=== PATIENT | female | born 1950 | race Caucasian/White ===

== ENCOUNTER 2017-02-04 12:50 | Emergency (ER) | payer MEDICARE, OTHER ==
[~2017-02-04] VITALS: Ht 154.9 cm; Wt 68.0 kg
[~2017-02-04 12:50] MED LIST: DIT5 PO; IBUP-974 PO; LOVA20TA2 PO; PARO-42 PO; TRAM50TA3 PO; TRAZ-289 PO
--- NOTE | 2017-02-04 12:50 | NUR ---
Patient was BIBA at this time.
[2017-02-04 13:00] VITALS: BP 120/78
--- NOTE | 2017-02-04 13:06 | NUR ---
PT TRAIGED WAITING FOR ER BED. EMS WITH PATIENT AT THIS TIME.
--- NOTE | 2017-02-04 13:27 | NUR ---
Patient taken to bed 01 via gurney per EMS.
--- NOTE | 2017-02-04 13:42 | NUR ---
Dr. Olivera evaluating patient at bedside.
[2017-02-04 14:23] LABS: BASOPHILS # (AUTO) 0.1 K/uL (0.00-0.22); BASOPHILS % (AUTO) 1.4 % (0.0-2.0); EOSINOPHILS # (AUTO) 0.1 K/uL (0-0.4); EOSINOPHILS % (AUTO) 0.7 % (0.0-4.0); HEMATOCRIT 37.7 % (36-48); HEMOGLOBIN 12.5 g/dL (12.0-16.0); LYMPHOCYTES # (AUTO) 1.7 K/uL (2.5-16.5); LYMPHOCYTES % (AUTO) 22.8 % (20.5-51.1); MEAN CORPUSCULAR HEMOGLOBIN 27 pg (27-31); MEAN CORPUSCULAR HGB CONC 33 g/dL (33-37); MEAN CORPUSCULAR VOLUME 81 fL (80-94); MONOCYTES # (AUTO) 0.4 K/uL (0.8-1.0); MONOCYTES % (AUTO) 4.8 % (1.7-9.3); NEUTROPHILS # (AUTO) 5.2 K/uL (1.8-7.7); NEUTROPHILS % (AUTO) 70.3 % (42.2-75.2); PLATELET COUNT (AUTO) 204 K/uL (140-450); RED BLOOD CELL COUNT(AUTO) 4.63 MIL/uL (4.20-5.40); RED CELL DISTRIBUTION WIDTH 14.9 % (11.6-13.7); WHITE BLOOD COUNT (AUTO) 7.5 K/uL (4.8-10.8)
[2017-02-04 14:25] LABS: APPEARANCE,URINE CLEAR (CLEAR); BILIRUBIN,URINE NEGATIVE (NEGATIVE); BLOOD, URINE NEGATIVE (NEGATIVE); COLOR,URINE YELLOW (YELLOW); LEUKOCYTE ESTERASE ,URINE NEGATIVE (NEGATIVE); NITRITE, URINE NEGATIVE (NEGATIVE); UGLUCOSE NEGATIVE (NEGATIVE)
[2017-02-04 14:44] LABS: ANION GAP 13.9 (8-16); CREATININE 0.9 mg/dL (0.6-1.3); POTASSIUM 3.9 mmol/L (3.5-5.1)
[2017-02-04 14:50] LABS: TOTAL BILIRUBIN 0.4 mg/dL (0.0-1.0)
[2017-02-04 14:58] VITALS: BP 145/88
--- NOTE | 2017-02-04 15:17 | NUR ---
Patient discharged with v/s stable. Written and verbal after care instructions given and explained. Patient verbalized understanding. Wheel Chair Assisted with to home. All questions addressed prior to discharge. Advised to follow up with PMD.
== END 2017-02-04 14:58 | disposition home or self-care (01) ==
LOC: MED 12:50
DX: R53.1 Weakness (principal); F32.9 Major depressive disorder, single episode, unspecified; Z79.899 Other long term (current) drug therapy
CPT/HCPCS: 36415; 80053; 81003; 84484; 85025; 93005; 99285

== ENCOUNTER 2017-10-07 09:52 | Inpatient (IN) | payer MEDICARE, OTHER ==
[~2017-10-07] VITALS: Ht 152.4 cm; Wt 62.6 kg
[~2017-10-07 09:52] MED LIST changes: -TRAZ-289 PO; +TRAZ100T99 PO
[2017-10-07 10:06] VITALS: BP 127/86
--- NOTE | 2017-10-07 10:12 | NUR ---
PT WHEELED TO BED 1
[2017-10-07] MEDS ORDERED: NACL 0.9% 1,000 ML IV ONE (10:37)
--- NOTE | 2017-10-07 10:39 | NUR ---
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 Patient fell to right side, per patient. Patient denies any pain. Patient denies LOC. Patient d/c from [facility] on 10/01/17 for aloc d/t UTI. LS CLEAR THROUGHOUT. SKIN IS PALE MOIST. BS ACTIVE X4, ABD SOFT NON-TENDER. DAUGHTER STATES THAT PT HAS HAD INCREASING CONFUSION IN PAST TWO WKS WITH DIZNESS. ER MD MADE AWARE. WILL CONTINUE TO MONITOR. hx--CVA (2009), hyperlipidemia, depression
[2017-10-07 11:03] LABS: BASOPHILS # (AUTO) 0.1 K/uL (0.00-0.22); BASOPHILS % (AUTO) 0.8 % (0.0-2.0); EOSINOPHILS % (AUTO) 0.6 % (0.0-4.0); HEMATOCRIT 32.5 % (36-48); HEMOGLOBIN 10.5 g/dL (12.0-16.0); LYMPHOCYTES # (AUTO) 0.9 K/uL (2.5-16.5); LYMPHOCYTES % (AUTO) 13.6 % (20.5-51.1); MEAN CORPUSCULAR HEMOGLOBIN 27 pg (27-31); MEAN CORPUSCULAR HGB CONC 32 g/dL (33-37); MEAN CORPUSCULAR VOLUME 82.3 fL (80-94); MONOCYTES # (AUTO) 0.6 K/uL (0.8-1.0); MONOCYTES % (AUTO) 8.8 % (1.7-9.3); NEUTROPHILS # (AUTO) 5.3 K/uL (1.8-7.7); NEUTROPHILS % (AUTO) 76.2 % (42.2-75.2); PLATELET COUNT (AUTO) 210 K/uL (140-450); RED BLOOD CELL COUNT(AUTO) 3.95 MIL/uL (4.20-5.40); RED CELL DISTRIBUTION WIDTH 15.2 % (11.6-13.7)
[2017-10-07 11:16] LABS: ANION GAP 8.8 (8-16); CARBON DIOXIDE 26.1 mmol/L (21-32); CHLORIDE 100 mmol/L (98-107); CREATININE 0.8 mg/dL (0.6-1.3); GFR ARICAN-AMERICAN 92 mL/min (>90); GLUCOSE 135 mg/dL (74-106); POTASSIUM 3.9 mmol/L (3.5-5.1); SODIUM SERUM 131 mmol/L (136-145); UREA NITROGEN, BLOOD 12 mg/dL (7-18)
[2017-10-07 11:19] LABS: PROTHROMBIN TIME 10.5 secs (10.8-13.4)
[2017-10-07 11:24] LABS: ALBUMIN 3.7 g/dL (3.4-5.0); ASPARTATE AMINOTRANSFERASE 21 U/L (15-37); TOTAL BILIRUBIN 0.5 mg/dL (0.0-1.0)
[2017-10-07 11:25] LABS: ACETAMINOPHEN < 0.5 ug/ml (10-30); AMYLASE 36 U/L (25-115); SALICYLATE < 2.8 mg/dL (2.8-20.0)
[2017-10-07 11:26] LABS: LIPASE 77 U/L (73-393)
--- NOTE | 2017-10-07 13:20 | NUR ---
PT POSITIONED ON BED WILSON. TOLERATED WELL
--- NOTE | 2017-10-07 13:40 | NUR ---
# 14 FR Urinary catheter inserted utilizing sterile technique. Immediate return of 650 ml CLEAR YELLOW urine noted. Urine sample collected and sent to lab. Pt tolerated procedure WELL.
[2017-10-07] MEDS ORDERED: FLUO60TA PO (14:29)
[2017-10-07] MEDS ORDERED: TEMA15CA24 PO (14:30)
[2017-10-07] MEDS ORDERED: ALEN70TA52 PO (14:32)
[2017-10-07] MEDS ORDERED: ATOR40TA PO (14:33)
[2017-10-07 14:57] LABS: APPEARANCE,URINE CLEAR (CLEAR); BILIRUBIN,URINE NEGATIVE (NEGATIVE); BLOOD, URINE NEGATIVE (NEGATIVE); COLOR,URINE YELLOW (YELLOW); LEUKOCYTE ESTERASE ,URINE NEGATIVE (NEGATIVE); NITRITE, URINE NEGATIVE (NEGATIVE); UGLUCOSE NEGATIVE (NEGATIVE)
--- NOTE | 2017-10-07 15:00 | NUR ---
PT RESTING IN BED IN NO APPEARENT DISTRESS. WILL CONTINUE TO MONITOR
[2017-10-07 15:06] LABS: BARBITURATE, URINE NEG. ng/ml (NEG <=200); BENZODIAZEPINE, URINE NEG. ng/mL (NEG <=200); CANNABINOID, URINE NEG. ng/mL (NEG <=50); COCAINE, URINE NEG. ng/mL (NEG <=300); OPIATE, URINE NEG. ng/mL (NEG <=2000); PHENCYCLIDINE SCREEN,URINE NEG. ng/mL (NEG <=25)
--- NOTE | 2017-10-07 15:40 | NUR ---
PT WHEELED TO RESTROOM IN NO APPEARENT DISTRESS.
--- NOTE | 2017-10-07 17:15 | NUR ---
PT RESTING AWAITING ROOM WITH DAUGHTER AT BEDSIDE. RR EVEN AND UNLABORED
--- NOTE | 2017-10-07 18:15 | NUR ---
Patient will be admitted to care of DR GAO. Admited to M/S. Will go to room 111A. Belongings list completed. Report to KALEY ARRINGTON .
--- NOTE | 2017-10-07 18:15 | NUR ---
PT ARRIVED ON UNIT VIA [facility], PT REPORT RECEIVED FROM ER NURSE BRET. PT AAOX3. ADMITTED WITH DX ALOC. CC; MECHANICAL FALL. NO S/S OF ACUTE DISTRESS ON RM AIR. VITAL SIGNS TAKEN, WITHIN NORMAL LIMIT. IV ACCESS NOTED TO RIGHT AC 20G, ASYMPTOMATIC, INFUSING WELL. SKIN INTACT, MRSA SWAB DONE. FALL RISK PRECAUTIONS IN PLACE, WRIST BAND, SOCKS, SIGN ON DOOR AND YELLOW GOWN. BED LOCKED, IN LOWEST POSITION AND SIDE RAILS UP X2. BOARD UPDATED. WILL CONTINUE TO MONITOR.
[2017-10-07] MEDS: DEXT 5% /NACL 0.9% 1,000 ML IV SCH (18:41)
--- NOTE | 2017-10-07 19:30 | NUR ---
ENDORSED PT TO MANAGER INSTRUMENTATION RN. PT EATING DINNER, IN STABLE CONDITION.
--- NOTE | 2017-10-07 19:35 | NUR ---
RECEIVED REPORT FROM DAY SHIFT NURSE. PT LYING IN BED. AAOX3. NO C/O PAIN. ON ROOM AIR. NO RESP DISTRESS NOTED. IV TO LEFT AC#20G, D5NS AT 75ML INFUSING WELL. PT HAS BRUISES TO LEFT LOWER EXT, MARINA UPPER EXT. AND BACK. HAS SMALL SKIN TEAR ON RIGHT ARM. SAFETY PRECAUTION IN PLACE. CALL LIGHT WITHIN REACH.
[2017-10-07 19:50] VITALS: BP 131/80
--- NOTE | 2017-10-07 19:50 | NUR ---
PT WAS ASKED ABOUT HER MEDICAL HISTORY FOR ADMISSION BUT PT STATED TO JUST CALL DAUGHTER REY SCALES TO ANSWER ALL PT'S MEDICAL HISTORY. CALLED KATHE SCALES AT [phone] AND SHE PROVIDED MEDICAL HISTORY/INFORMATION ABOUT PT.
[2017-10-07] MEDS: ATORVASTATIN 20 MG TAB PO SCH (21:09)
--- NOTE | 2017-10-07 21:10 | NUR ---
DUE MEDS GIVEN. PT TOLERATED WELL. NO C/O PAIN.
[2017-10-08] VITALS: BP 129/78
--- NOTE | 2017-10-08 00:05 | NUR ---
PT RESTING IN BED WITH EYES CLOSED. NO S/S OF PAIN OR DISCOMFORT. NO S/S OF RESP DISTRESS. SAFETY PRECAUTION IN PLACE.
--- NOTE | 2017-10-08 02:49 | NUR ---
PT SLEEPING. NO S/S OF RESP DISTRESS NOTED. NO S/S OF PAIN. FALL PRECAUTION IN PLACE.
--- NOTE | 2017-10-08 04:35 | NUR ---
PT SLEEPING , EASILY AROUSABLE. NO S/S OF PAIN OR DISCOMFORT.
--- NOTE | 2017-10-08 05:00 | NUR ---
PT WAS CLEANED AND CHANGED BY MILL ROLL REWINDER. NO C/O PAIN OR SOB NOTED. PT KEPT DRY AND COMFORTABLE.
[2017-10-08 06:46] LABS: BASOPHILS % (AUTO) 1.1 % (0.0-2.0); EOSINOPHILS # (AUTO) 0.1 K/uL (0-0.4); EOSINOPHILS % (AUTO) 2.7 % (0.0-4.0); HEMATOCRIT 34.4 % (36-48); HEMOGLOBIN 11.3 g/dL (12.0-16.0); LYMPHOCYTES # (AUTO) 1.1 K/uL (2.5-16.5); LYMPHOCYTES % (AUTO) 25.1 % (20.5-51.1); MEAN CORPUSCULAR HEMOGLOBIN 27 pg (27-31); MEAN CORPUSCULAR HGB CONC 33 g/dL (33-37); MEAN CORPUSCULAR VOLUME 81.8 fL (80-94); MONOCYTES # (AUTO) 0.3 K/uL (0.8-1.0); MONOCYTES % (AUTO) 6.9 % (1.7-9.3); NEUTROPHILS # (AUTO) 2.8 K/uL (1.8-7.7); NEUTROPHILS % (AUTO) 64.2 % (42.2-75.2); PLATELET COUNT (AUTO) 213 K/uL (140-450); RED BLOOD CELL COUNT(AUTO) 4.21 MIL/uL (4.20-5.40); RED CELL DISTRIBUTION WIDTH 15.5 % (11.6-13.7); WHITE BLOOD COUNT (AUTO) 4.3 K/uL (4.8-10.8)
[2017-10-08 07:05] LABS: ALBUMIN 3.5 g/dL (3.4-5.0); ANION GAP 8.1 (8-16); CARBON DIOXIDE 25.1 mmol/L (21-32); CREATININE 0.6 mg/dL (0.6-1.3); POTASSIUM 4.2 mmol/L (3.5-5.1); TOTAL BILIRUBIN 0.6 mg/dL (0.0-1.0)
--- NOTE | 2017-10-08 07:10 | NUR ---
ENDORSED PT TO DAY SHIFT NURSE. PT IN STABLE CONDITION.
--- NOTE | 2017-10-08 07:49 | NUR ---
RECEIVED REPORT FROM MAYTE ARRINGTON FOR CONTINUITY OF CARE. PATIENT AWAKE AND ALERT AND ORIENTED X 2 CONFUSED AT TIMES . NO S/S OF RESP DISTRESS NOTED . DENIES ANY PAIN IV SITE LEFT AC GAUGE 20 INTACT AND PATENT IVF INFUSING WELL. BRUISES NOTED ON BILATERAL UPPER AND LOWER EXTREMITIES AND BACK. SKIN TEAR ON ERIC. INCONTINENT OF BOWEL AND BLADDER. WILL REPOSITION Q 2 HRS TO PREVENT SKIN BREAK DOWN. PLAN OF CARE DISCUSSED WITH THE PATIENT VITALS STABLE WILL CONTINUE TO MONITOR.
--- NOTE | 2017-10-08 07:58 | NUR ---
PATIENT HAS BEEN SCREENED AND CATEGORIZED MODERATE NUTRITION RISK. PATIENT WILL BE SEEN WITHIN 3-5 DAYS OF ADMISSION. 10/10/17 10/12/17 FELIZ BRITO MBA, RD
[2017-10-08 08:00] VITALS: BP 123/79
[2017-10-08] MEDS: DEXT 5% /NACL 0.9% 1,000 ML IV SCH (08:20)
--- NOTE | 2017-10-08 09:00 | NUR ---
DUE MEDS GIVEN TOLERATED WELL . ASSISTED PATIENT WITH MORNING CARE. REPOSITION WILL OBSERVE PATIENT
[2017-10-08] MEDS: FLUoxetine 20 MG CAP PO SCH (09:51)
[2017-10-08] MEDS: ASPIRIN 81 MG TAB.CHEW PO SCH (09:51)
[2017-10-08] MEDS: ENOXAPARIN 40 MG/0.4 ML SYR SUBQ SCH (09:53)
[2017-10-08] MEDS ORDERED: OXYBUTYNIN 5 MG TAB PO SCH (10:00)
--- NOTE | 2017-10-08 11:00 | NUR ---
ASSISTED PATIENT TO BSC MAX ASSIST HAD LARGE BM , KEPT PT CLEAN AND DRY
--- NOTE | 2017-10-08 13:15 | NUR ---
RECEIVED PATIENT REPORT FROM KRISTOPHER ARRINGTON AT BEDSIDE, PATIENT IS AAOX3 AND SHOWS NO S/S OF ACUTE DISTRESS ON ROOM AIR. PATIENT DENIES PAIN. IVF'S INFUSING WELL ON THE LAC. SKIN IS INTACT. PATIENT IS ON FALL RISK PRECAUTION, BED IN LOW POSITION, BRAKES ACTIVATED, WITH BED ALARM ON. CALL LIGHT IS WITHIN REACH. PATIENT IS AWARE OF POC FOR TODAY AND VERBALIZED UNDERSTANDING.
--- NOTE | 2017-10-08 13:18 | NUR ---
ENDORSE THE CARE TO CHANA
--- NOTE | 2017-10-08 14:45 | NUR ---
PATIENT WAS ASSISTED TO THE BSC WITH TWO PERSON ASSIST. PATIENT HAS DIFFICULTY STANDING AND [place] [facility]IENT VOIDED CLEAR YELLOW URINE. PATIENT WAS THEN GIVEN PERINEAL CARE AND GIVEN NEW YELLOW GOWN. PATIENT IS NOW IN BED WITH HOB ELEVATED. BED IN LOW POSITION, BED ALARM ACTIVATED, WITH CALL LIGHT WITHIN REACH.
[2017-10-08 16:20] VITALS: BP 125/79
--- NOTE | 2017-10-08 19:30 | NUR ---
GAVE PATIENT REPORT AT BEDSIDE TO NIGHT NURSE, PATIENT ENDORSED IN STABLE CONDITION.
--- NOTE | 2017-10-08 19:30 | NUR ---
RECEIVED PT REPORT FROM DAY SHIFT NURSE AT BEDSIDE. PT IN STABLE CONDITION. PT IS A/O X3. IV ACCESS IN L AC 20G WITH IVF RUNNING PER MD ORDERS. IV IS PATENT AND INTACT. BRUISING NOTED ON PT LEGS AND ARMS. PT HAS NO C/O PAIN AT THIS TIME. BED IS LOCKED, LOW POSITION AND SIDE RAILS UP X2. CALL LIGHT IS WITHIN REACH. BOARD UPDATED. WILL CONTINUE TO MONITOR PT.
[2017-10-08] MEDS: ATORVASTATIN 20 MG TAB PO SCH (20:29)
[2017-10-08] MEDS: OXYBUTYNIN 5 MG TAB PO SCH (20:29)
--- NOTE | 2017-10-08 20:29 | NUR ---
SCHEDULED MEDICATIONS GIVEN. PT TOLERATED WELL. WILL CONTINUE TO MONITOR.
--- NOTE | 2017-10-08 22:36 | NUR ---
ASSISTED PT UP TO BEDSIDE COMMODE. PT BACK IN BED. NO SIGNS OR SYMPTOMS OF DISTRESS. WILL CONTINUE TO MONITOR PT.
[2017-10-09] VITALS: BP 144/81
--- NOTE | 2017-10-09 00:03 | NUR ---
PT VS STABLE. NO SIGNS OR SYMPTOMS OF DISTRESS. ALL NEEDS ARE MET AT THIS TIME. WILL CONTINUE TO MONITOR PT.
--- NOTE | 2017-10-09 02:23 | NUR ---
PT ASLEEP IN BED. NO SIGNS OF DISTRESS. WILL CONTINUE TO MONITOR.
[2017-10-09] MEDS: DEXT 5% /NACL 0.9% 1,000 ML IV SCH ×2 (02:46→11:00)
--- NOTE | 2017-10-09 04:42 | NUR ---
PT IV RIPPED OUT. CANULA INTACT. NEW IV ACCESS IN R FA 22G. IV PATENT AND INTACT.
--- NOTE | 2017-10-09 07:02 | NUR ---
ENDORSED PT TO DAY SHIFT NURSE FOR CONTINUITY OF CARE. PT IN STABLE CONDITION.
--- NOTE | 2017-10-09 07:05 | NUR ---
RECEIVED REPORT FROM CORRECTIONS CADET RN. PT IN STABLE CONDITION. AAO X1, LAO SPEAKING. SOME BRUISING ON ALL EXTREMITIES FROM S/P FALL BEFORE ADMISSION. USES COMMODE AT BEDSIDE WITH ASSIST. PT HAS GENERALIZED WEAKNESS AND LEFT SIDED WEAKNESS FROM HX: CVA. IV SITE PATENT ASYMPTOMATIC, RUNNING IVF PER MD ORDERS. ALL SAFETY PRECAUTIONS IN PLACE, WILL CONTINUE TO MONITOR.
[2017-10-09 08:00] VITALS: BP 146/79
--- NOTE | 2017-10-09 09:30 | NUR ---
RECEIVED DISCHARGE ORDER FROM DR. GAO. PT TO GO HOME WITH PT HOME HEALTH. CALLED AND LEFT VOICEMAIL FOR DAUGHTER REY [phone] TO INFORM OF NEW UPDATES.
[2017-10-09] MEDS: ENOXAPARIN 40 MG/0.4 ML SYR SUBQ SCH (09:46)
[2017-10-09] MEDS: ASPIRIN 81 MG TAB.CHEW PO SCH (09:47)
[2017-10-09] MEDS: FLUoxetine 20 MG CAP PO SCH (09:47)
[2017-10-09] MEDS: OXYBUTYNIN 5 MG TAB PO SCH (09:47)
--- NOTE | 2017-10-09 10:13 | NUR ---
DAUGHTER REY CALLED BACK TO SAY THAT SHE WILL BE AT THE HOSPITAL TO QUALITY ASSURANCE PT IN ONE HOUR. CONFIRMED HOME ADDRESS WITH DAUGHTER FOR PT HOME HEALTH.
--- NOTE | 2017-10-09 11:50 | NUR ---
DISCHARGE PAPERWORK, INCLUDING INSTRUCTIONS TO FOLLOW UP WITH PCP AND MEDICATION RECONCILIATION TEACHING, GIVEN TO PATIENT AND FAMILY MEMBERS AT BEDSIDE. PT PREFERS FAMILY MEMBER AT BEDSIDE TO TRANSLATE. PT AND FAMILY MEMBER VERBALIZED COMPLETE UNDERSTANDING OF ALL DISCHARGE INSTRUCTIONS. IV SITE REMOVED WITH MINIMAL BLOOD LOSS AND LUMEN COMPLETELY INTACT. ID BANDS REMOVED. ALL PERSONAL BELONGINGS ARE WITH PATIENT. PT DISCHARGED FROM UNIT VIA WHEELCHAIR WITH FAMILY MEMBERS. PT LEFT UNIT AT 1150 WITH FAMILY MEMBERS AND WILL GO HOME VIA PRIVATE VEHICLE.
--- NOTE | 2017-10-10 08:45 | NUR ---
RETRO FAXED ER REPORT, H&P,PROGRESS AND DISHCARGE INSTUCTIONS TO [facility] [phone] NO DISCHARGE SUMMARY
--- NOTE | 2017-10-10 09:12 | NUR ---
RECEIVED ORDER FOR HOME HEALTH FOR PHYSICAL THERAPY. I CALED WES AT [facility] AND SHE SAID TO FAX THE ORDER WITH THE H&P, MED LIST, FACE SHEET TO HER AT [phone] AND SHE WILL SET UP THE PHYSICAL THERAPY. [place] PHONE [phone]
== END 2017-10-09 11:50 | disposition home or self-care (01) | DRG 884 ==
LOC: MED 09:52 → MTU 16:52
PROVIDERS: ADMIT Internal Medicine; ATTEND Internal Medicine
DX: F03.90 Unspecified dementia, unspecified severity, without behavioral disturbance, psychotic disturbance, mood disturbance, and anxiety (principal); E87.1 Hypo-osmolality and hyponatremia; I69.954 Hemiplegia and hemiparesis following unspecified cerebrovascular disease affecting left non-dominant side; E86.0 Dehydration; I10 Essential (primary) hypertension; E78.5 Hyperlipidemia, unspecified; F32.9 Major depressive disorder, single episode, unspecified; R27.0 Ataxia, unspecified; N32.81 Overactive bladder; M81.0 Age-related osteoporosis without current pathological fracture
CPT/HCPCS: 36415; 70450; 71045; 80053; 80305; 81003; 82140; 82150; 82550; 83690; 84484; 85025; 85610; 85730; 87081; 93005; 96360; 96361; 97116; 97140; 97530; 99285; C1758; G0480; G0482; J1650; J7042

== ENCOUNTER 2018-01-18 08:18 | Emergency (ER) | payer MEDICARE, OTHER ==
[~2018-01-18] VITALS: Ht 152.4 cm; Wt 64.9 kg
[~2018-01-18 08:18] MED LIST changes: +ALEN70TA52 PO; +ATOR40TA PO; +FLUO60TA PO; -IBUP-974 PO; -LOVA20TA2 PO; -TRAM50TA3 PO; -TRAZ100T99 PO
[2018-01-18 08:31] VITALS: BP 149/83
[2018-01-18] MEDS ORDERED: cefTRIAXone 1,000 MG VIAL ONE (09:41)
[2018-01-18] MEDS: NACL 0.9% 1,000 ML IV ONE (10:02)
[2018-01-18 11:43] VITALS: BP 157/82
== END 2018-01-18 11:42 | disposition home or self-care (01) ==
LOC: MED 08:18
DX: N39.0 Urinary tract infection, site not specified (principal); R03.0 Elevated blood-pressure reading, without diagnosis of hypertension; Z86.73 Personal history of transient ischemic attack (TIA), and cerebral infarction without residual deficits; Z79.899 Other long term (current) drug therapy
CPT/HCPCS: 96365; 99283; J0696

== ENCOUNTER 2021-11-15 22:54 | Emergency (ER) | payer BC, OTHER ==
[~2021-11-15] VITALS: Ht 152.4 cm; Wt 83.9 kg
[~2021-11-15 22:54] MED LIST changes: -ALEN70TA52 PO; +FOS70 PO
--- NOTE | 2021-11-15 23:00 | NUR ---
received pt from intake and placed to bed 12. pt currently a/o x 3, gcs 14. able to move all extremities freely. pt is a 71 year old female with hx of htn, hld, early dementia and cva with left sided paresis coming from home via w/c for cc of dyspnea. per family member, sts that pt had bubbling respirations at home. sats in the 88%. placed on 3lpm n/c. normally confused per family member. denies any pain at this time. pt normally incontinent. placed indwelling at this time with clear yellow urine output.
--- NOTE | 2021-11-15 23:01 | NUR ---
PT TO TRIAGED AND TAKEN TO BED 12
[2021-11-15 23:02] VITALS: BP 148/83
--- NOTE | 2021-11-15 23:02 | NUR ---
EMMA MADE AWARE.
[2021-11-15] MEDS ORDERED: NACL 0.9% 1,500 ML IV SCH (23:05)
[2021-11-15] MEDS ORDERED: cefTRIAXone 1,000 MG in DEXT 5% MINI-BAG PLUS 50 ML IV ONE (23:05)
[2021-11-15] MEDS ORDERED: ACETAMINOPHEN 325 MG TAB PO ONE (23:05)
[2021-11-15 23:36] LABS: BASOPHILS % (AUTO) 0.2 % (0.0-2.0); EOSINOPHILS % (AUTO) 0.2 % (0.0-4.0); HEMATOCRIT 34.2 % (36-48); HEMOGLOBIN 10.8 g/dL (12.0-16.0); LYMPHOCYTES # (AUTO) 0.8 K/uL (2.5-16.5); MEAN CORPUSCULAR HEMOGLOBIN 25 pg (27-31); MEAN CORPUSCULAR HGB CONC 32 g/dL (33-37); MEAN CORPUSCULAR VOLUME 77.5 fL (80-94); MONOCYTES # (AUTO) 0.4 K/uL (0.8-1.0); MONOCYTES % (AUTO) 3.4 % (1.7-9.3); NEUTROPHILS # (AUTO) 10.1 K/uL (1.8-7.7); NEUTROPHILS % (AUTO) 89.2 % (42.2-75.2); PLATELET COUNT (AUTO) 148 K/uL (140-450); RED BLOOD CELL COUNT(AUTO) 4.41 MIL/uL (4.20-5.40); RED CELL DISTRIBUTION WIDTH 16.3 % (11.6-13.7); WHITE BLOOD COUNT (AUTO) 11.3 K/uL (4.8-10.8)
[2021-11-15] MEDS ORDERED: cefTRIAXone 1,000 MG VIAL ONE (23:44)
[2021-11-15 23:52] LABS: APPEARANCE,URINE CLOUDY (CLEAR); BILIRUBIN,URINE NEGATIVE (NEGATIVE); BLOOD, URINE 3+ (NEGATIVE); COLOR,URINE YELLOW (YELLOW); LEUKOCYTE ESTERASE ,URINE 2+ (NEGATIVE); NITRITE, URINE POSITIVE (NEGATIVE); UGLUCOSE NEGATIVE (NEGATIVE)
[2021-11-15 23:55] LABS: ALBUMIN 3.1 g/dL (3.4-5.0); ANION GAP 15.8 (8-16); CARBON DIOXIDE 20.9 mmol/L (21-32); CHLORIDE 105 mmol/L (98-107); CREATININE 1.1 mg/dL (0.6-1.3); GLUCOSE 176 mg/dL (74-106); POTASSIUM 3.7 mmol/L (3.5-5.1); SODIUM SERUM 138 mmol/L (136-145); TOTAL BILIRUBIN 0.6 mg/dL (0.0-1.0); UREA NITROGEN, BLOOD 20 mg/dL (7-18)
[2021-11-15 23:55] LABS: RBC,URINE 0-5 /HPF (0-5); WBC,URINE TOO MANY TO COUNT /HPF (0-5)
--- NOTE | 2021-11-16 02:58 | NUR ---
NAD at this time. VSS at this time. currently asleep at this time. arousable via verbal stimuli.
--- NOTE | 2021-11-16 04:45 | NUR ---
called [facility] and gave report to Idalia ARRINGTON. pt will be transported to [facility] under the care of Dr. Quiñonez to room 2127.
[2021-11-16 04:46] VITALS: BP 86/54
--- NOTE | 2021-11-16 04:51 | NUR ---
[facility] unit [id number] arrived. report given to [facility].
== END 2021-11-16 04:51 | disposition short-term general hospital (02) ==
LOC: MED 22:54
DX: A41.9 Sepsis, unspecified organism (principal); Z20.822 Contact with and (suspected) exposure to COVID-19; N12 Tubulo-interstitial nephritis, not specified as acute or chronic; Z86.73 Personal history of transient ischemic attack (TIA), and cerebral infarction without residual deficits
CPT/HCPCS: 36415; 71045; 80053; 81001; 82550; 83605; 83880; 84484; 85025; 87040; 87086; 87426; 93005; 96365; 99285; J0696; Q0092